=== PATIENT | female | born 1970 | race Caucasian/White ===

== ENCOUNTER 2022-10-06 21:21 | Inpatient (IN) | payer SELFPAY ==
[~2022-10-06] VITALS: Ht 165.1 cm; Wt 119.7 kg
[2022-10-06] MEDS ORDERED: EPINEPHRINE 1:1000 1 MG/ML AMP INJ ONE (21:30)
[2022-10-06] MEDS ORDERED: FAMOTIDINE 20MG/2ML VIAL IV ONE (21:30)
[2022-10-06] MEDS ORDERED: EPINEPHRINE 10 MG in SODIUM CHLORIDE 0.9% 240 ML IV PRN ×2 (21:30→21:45)
[2022-10-06] MEDS ORDERED: SODIUM CHLORIDE 0.9% 1,000 ML IV ONE (21:30)
[2022-10-06] MEDS ORDERED: DEXAMETHASONE 10 MG/ML VIAL IV ONE (21:30)
[2022-10-06 22:01] LABS: CHLORIDE 107 mEq/L (98-107); INDEX HEMOLYSI 1 (1-3); INDEX ICTERIC 1 (1-4); INDEX LIPEMIC 1 (1-3); POTASSIUM 2.9 mEq/L (3.5-5.1); SODIUM 137 mEq/L (136-145)
[2022-10-06 22:09] LABS: BASOPHILS % 0.6 % (0.0-2.0); EOSINOPHILS % 2.1 % (0.0-5.0); HEMATOCRIT. 37.7 % (36.0-48.0); HEMOGLOBIN. 13.7 g/dL (12.0-16.0); LYMPHOCYTES % 38.7 % (20.0-50.0); MEAN CORPUSCULAR HEMOGLOBIN 31.4 pg (28.0-32.0); MEAN CORPUSCULAR HGB CONC 36.5 g/dL (31.0-37.0); MEAN CORPUSCULAR VOLUME 86.2 fL (81.0-99.0); MEAN PLATELET VOLUME 7.4 fl (7.4-10.4); NEUTROPHILS % 53.6 % (40.0-76.0); PLATELET 463 x1000/uL (130-400); RED BLOOD CELL COUNT 4.37 mill/uL (4.2-5.4); RED CELL DISTRIBUTION WIDTH 17.5 % (11.6-14.6); WHITE BLOOD COUNT 17.8 x1000/uL (4.5-11.0)
[2022-10-06 22:10] LABS: ALANINE AMINOTRANSFERASE 70 IU/L (13-61); ALBUMIN 3.8 g/dL (3.4-5.0); ASPARTATE AMINOTRANSFERASE 43 IU/L (15-37); BILIRUBIN TOTAL 1.2 mg/dL (0.1-1.0); CALCIUM 8.5 mg/dL (8.5-10.1); CARBON DIOXIDE 22 mEq/L (21-32); CREATININE 0.6 mg/dL (0.6-1.3); DIFFERENTIAL COMMENT 1; GLUCOSE 165 mg/dL (70-105); PROTEIN TOTAL 7.5 g/dL (6.0-8.3); UREA NITROGEN BLOOD 13 mg/dL (7-21)
[2022-10-06 22:12] LABS: ADD RBC MORPHOLOGY YES
[2022-10-06] MEDS ORDERED: POTASSIUM CHLORIDE INJ 40 MEQ in DEXT 5% WATER 500 ML IV ONE (23:30)
[2022-10-06] MEDS ORDERED: ACETAMINOPHEN 325MG TABLET PO ONE (23:30)
[2022-10-06 23:31] LABS: PLATELET ESTIMATE INCREASED
[2022-10-06 23:32] LABS: ANISOCYTOSIS 2+
[2022-10-07] MEDS ORDERED: EPINEPHRINE 5 MG in SODIUM CHLORIDE 0.9% 245 ML IV ONE (02:30)
[2022-10-07] MEDS ORDERED: METHYLPREDNISOLONE SOD SUCC 40MG/ML (ACT-O-VIAL) IV SCH (02:45)
[2022-10-07] MEDS ORDERED: ONDANSETRON HCL 4MG/2ML INJ IV PRN (02:45)
[2022-10-07] MEDS ORDERED: IPRATROPIUM/ALBUTEROL 0.5-3(2.5)MG/3ML NEB HHN PRN (02:45)
[2022-10-07] MEDS ORDERED: DIPHENHYDRAMINE 50MG/ML VIAL IV PRN (02:45)
[2022-10-07 06:00] VITALS: BP 121/70; PULSE 109; RESP 16; TEMP 98.6
[2022-10-07] MEDS ORDERED: DEXTROSE 50% WATER 50ML SYRINGE IV PRN (07:15)
[2022-10-07] MEDS ORDERED: IPRATROPIUM/ALBUTEROL 0.5-3(2.5)MG/3ML NEB HHN NR (07:15)
[2022-10-07] MEDS: BLOOD SUGAR DIAGNOSTIC STRIP TEST SCH ×4 (07:30→20:27)
[2022-10-07 08:00] VITALS: BP 121/61; PULSE 89; RESP 27; TEMP 97.9
[2022-10-07] MEDS ORDERED: INSULIN LISPRO 100 UNITS/ML SUBCUT SCH (08:00)
[2022-10-07] MEDS: ENOXAPARIN 30MG/0.3ML SYR SUBCUT SCH ×2 (08:39→20:27)
[2022-10-07 10:00] VITALS: BP 125/63; PULSE 85; RESP 22; TEMP 98
[2022-10-07] MEDS: METHYLPREDNISOLONE SOD SUCC 40MG VIAL IV SCH ×3 (10:34→23:15)
[2022-10-07 11:18] LABS: HEMATOCRIT. 37.9 % (36.0-48.0); HEMOGLOBIN. 12.6 g/dL (12.0-16.0); MEAN CORPUSCULAR HEMOGLOBIN 30.1 pg (28.0-32.0); MEAN CORPUSCULAR HGB CONC 33.3 g/dL (31.0-37.0); MEAN CORPUSCULAR VOLUME 90.4 fL (81.0-99.0); MEAN PLATELET VOLUME 7.3 fl (7.4-10.4); PLATELET 493 x1000/uL (130-400); RED BLOOD CELL COUNT 4.19 mill/uL (4.2-5.4); RED CELL DISTRIBUTION WIDTH 18.1 % (11.6-14.6); WHITE BLOOD COUNT 20.9 x1000/uL (4.5-11.0)
[2022-10-07 11:21] LABS: DIFFERENTIAL COMMENT 1
[2022-10-07 11:26] LABS: CHLORIDE 113 mEq/L (98-107); INDEX HEMOLYSI 1 (1-3); INDEX ICTERIC 1 (1-4); INDEX LIPEMIC 1 (1-3); POTASSIUM 3.9 mEq/L (3.5-5.1); SODIUM 138 mEq/L (136-145)
[2022-10-07 11:34] LABS: ALANINE AMINOTRANSFERASE 74 IU/L (13-61); ALBUMIN 3.8 g/dL (3.4-5.0); ASPARTATE AMINOTRANSFERASE 39 IU/L (15-37); BILIRUBIN TOTAL 0.7 mg/dL (0.1-1.0); CALCIUM 8.9 mg/dL (8.5-10.1); CARBON DIOXIDE 15 mEq/L (21-32); CREATININE 0.6 mg/dL (0.6-1.3); GLUCOSE 237 mg/dL (70-105); PHOSPHORUS 2.8 mg/dL (2.5-4.9); PROTEIN TOTAL 7.5 g/dL (6.0-8.3); UREA NITROGEN BLOOD 11 mg/dL (7-21)
[2022-10-07 11:40] LABS: D-DIMER 11.25 mg/L FEU (<0.50); PROTHROMBIN TIME 10.9 sec (9.6-11.0)
[2022-10-07 11:56] LABS: LACTIC ACID 7.5 mmol/L (0.4-2.0)
[2022-10-07 12:00] VITALS: BP 123/69; PULSE 82; RESP 20; TEMP 97.9
[2022-10-07] MEDS: INSULIN LISPRO 100 UNITS/ML SUBCUT SCH ×3 (12:16→20:28)
[2022-10-07 13:40] LABS: ANISOCYTOSIS 1+; PLATELET ESTIMATE INCREASED
[2022-10-07 15:06] LABS: CLARITY URINE CLOUDY (CLEAR); COLOR URINE YELLOW (YELLOW); GLUCOSE URINE NEGATIVE (NEGATIVE); KETONES URINE TRACE (NEGATIVE); LEUKOCYTE ESTERASE URINE NEGATIVE (NEGATIVE); NITRITE URINE NEGATIVE (NEGATIVE); OCCULT BLOOD URINE 2+ (NEGATIVE); PH URINE 5.5 (4.5-8.0); PROTEIN URINE 1+ (NEGATIVE); SPECIFIC GRAVITY URINE 1.025 (1.005-1.030)
[2022-10-07 15:16] LABS: BACTERIA URINE 3+; MUCUS URINE 1+ /lpf (< = 2+); RBC URINE 0-2 /hpf (0-2); SQUAMOUS EPITHELIAL CELL URINE 2+ /lpf (RARE/1+)
[2022-10-07 15:23] LABS: *AMPHETAMINES SCREEN URINE NEGATIVE (NEGATIVE); *BARBITURATES SCREEN URINE NEGATIVE (NEGATIVE); *BENZODIAZEPINES SCREEN URINE NEGATIVE (NEGATIVE); *COCAINE SCREEN URINE NEGATIVE (NEGATIVE); CANNABINOID URINE SCREEN NEGATIVE (NEGATIVE); ECSTASY MDMA SCREEN URINE NEGATIVE (NEGATIVE); METHADONE URINE SCREEN NEGATIVE (NEGATIVE); OPIATES URINE SCREEN NEGATIVE (NEGATIVE); PHENCYCLIDINE URINE SCREEN NEGATIVE (NEGATIVE)
[2022-10-07 16:00] VITALS: BP 127/72; PULSE 85; RESP 20; TEMP 97.9
[2022-10-07] MEDS ORDERED: CEFTRIAXONE 1GM PREMIX 50 ML IV SCH (17:30)
[2022-10-07] MEDS ORDERED: CEFTRIAXONE 1,000 MG in DEXTROSE 5% WATER 50 ML IV SCH (18:30)
[2022-10-07 20:00] VITALS: BP 134/76; PULSE 115; RESP 21; TEMP 98
[2022-10-07] MEDS ORDERED: FAMOTIDINE 20MG TABLET PO SCH (21:00)
[2022-10-08] VITALS: BP 124/68; PULSE 100; RESP 20; TEMP 98.5
[2022-10-08 04:00] VITALS: BP 121/68; PULSE 85; RESP 16; TEMP 98.4
[2022-10-08] MEDS: METHYLPREDNISOLONE SOD SUCC 40MG VIAL IV SCH (05:01)
[2022-10-08 06:40] LABS: HEMATOCRIT. 33.1 % (36.0-48.0); HEMOGLOBIN. 11.7 g/dL (12.0-16.0); MEAN CORPUSCULAR HEMOGLOBIN 31.1 pg (28.0-32.0); MEAN CORPUSCULAR HGB CONC 35.3 g/dL (31.0-37.0); MEAN CORPUSCULAR VOLUME 88.1 fL (81.0-99.0); MEAN PLATELET VOLUME 7.1 fl (7.4-10.4); PLATELET 427 x1000/uL (130-400); RED BLOOD CELL COUNT 3.76 mill/uL (4.2-5.4); RED CELL DISTRIBUTION WIDTH 17.8 % (11.6-14.6)
[2022-10-08 07:00] LABS: CHLORIDE 111 mEq/L (98-107); INDEX HEMOLYSI 1 (1-3); INDEX ICTERIC 1 (1-4); INDEX LIPEMIC 1 (1-3); POTASSIUM 4.5 mEq/L (3.5-5.1); SODIUM 137 mEq/L (136-145)
[2022-10-08 07:04] LABS: CARBON DIOXIDE 20 mEq/L (21-32); CREATININE 0.5 mg/dL (0.6-1.3); GLUCOSE 173 mg/dL (70-105); UREA NITROGEN BLOOD 14 mg/dL (7-21)
[2022-10-08 07:05] LABS: DIFFERENTIAL COMMENT 1
[2022-10-08 08:00] VITALS: BP 123/72; PULSE 108; RESP 19; TEMP 98
[2022-10-08 08:00] LABS: LACTIC ACID 2.7 mmol/L (0.4-2.0)
[2022-10-08] MEDS: BLOOD SUGAR DIAGNOSTIC STRIP TEST SCH (08:05)
[2022-10-08] MEDS: ENOXAPARIN 30MG/0.3ML SYR SUBCUT SCH (08:05)
[2022-10-08] MEDS: INSULIN LISPRO 100 UNITS/ML SUBCUT SCH (08:06)
[2022-10-08 10:07] LABS: ANISOCYTOSIS 1+; PLATELET ESTIMATE INCREASED
[2022-10-08] MEDS ORDERED: PRED1TAB MT (11:09)
[2022-10-08 11:14] VITALS: BP 125/78; PULSE 75; TEMP 98; O2SAT 96
[2022-10-08 12:00] VITALS: BP 125/75; PULSE 96; RESP 18; TEMP 98.1
[2022-10-08] MEDS ORDERED: PRED-855 PO (14:53)
[2022-10-08] MEDS ORDERED: EPIN0.152 IM (14:55)
== END 2022-10-08 16:57 | disposition home or self-care (01) | DRG 811 ==
LOC: ER 21:21 → EDBD 10-07 01:08 → 5EST 10-07 01:08 → EDBEDREQ 10-07 01:11 → EDBEDREQTM 10-07 01:11 → EDBEDREQSVC 10-07 02:30 → ENRESERV 10-07 02:31
PROVIDERS: ADMIT Internal Medicine; ATTEND Internal Medicine
DX: T78.09XA Anaphylactic reaction due to other food products, initial encounter (principal); J96.00 Acute respiratory failure, unspecified whether with hypoxia or hypercapnia; R65.10 Systemic inflammatory response syndrome (SIRS) of non-infectious origin without acute organ dysfunction; R74.01 Elevation of levels of liver transaminase levels; I10 Essential (primary) hypertension; E87.6 Hypokalemia; Z88.8 Allergy status to other drugs, medicaments and biological substances
CPT/HCPCS: 36415; 71045; 80048; 80053; 80305; 81003; 82962; 83036; 83605; 83735; 84100; 85025; 85379; 93005; 93970; 99291; J0696; J1100; J1650; J1815; J2920; J3480; J3490; J7030; J7050; J7060